=== PATIENT | female | born 1970 | race Caucasian/White ===

== ENCOUNTER 2021-07-13 18:18 | Emergency (ER) | payer OTHER ==
[~2021-07-13 18:18] MED LIST: FLEXERIL 10 MG10 MG PO; IBUPROFEN600 MG PO
== END 2021-07-13 20:58 | disposition home or self-care (01) ==
LOC: ER1 18:18
DX: U07.1 COVID-19 (principal); J06.9 Acute upper respiratory infection, unspecified; E11.9 Type 2 diabetes mellitus without complications; I10 Essential (primary) hypertension; Z90.710 Acquired absence of both cervix and uterus; Z88.0 Allergy status to penicillin; Z88.5 Allergy status to narcotic agent; Z79.899 Other long term (current) drug therapy
CPT/HCPCS: 71045; 99284; U0003

== ENCOUNTER → 2022-02-25 | Day surgery (SDC) | payer OTHER ==
[~2022-02-25] VITALS: Ht 170.2 cm; Wt 83.0 kg
[~2022-02-25] MED LIST changes: +BASAGLAR K100 UNIT/1 SQ; +BC POWDER PACK1 EACH PO; +COREG6.25 MG PO; +HYDROCODON-ACE1 EAC6 PO; +HYDROXYZINE HCL25 MG PO; +LEXAPRO10 MG PO; +LISINOPRIL10 MG PO; +METFORMIN HCL1000 MG PO; +PROAIR HFA8.5 GM INH; +VITAMIN B12 PO; +VITAMIN D21250 MCG PO
== END | disposition home or self-care (01) ==
LOC: OR 05:48
DX: S83.241A Other tear of medial meniscus, current injury, right knee, initial encounter (principal); S83.411A Sprain of medial collateral ligament of right knee, initial encounter; M94.261 Chondromalacia, right knee; M65.9 Synovitis and tenosynovitis, unspecified; I10 Essential (primary) hypertension; E78.5 Hyperlipidemia, unspecified; J45.909 Unspecified asthma, uncomplicated; E11.9 Type 2 diabetes mellitus without complications; F41.9 Anxiety disorder, unspecified; F32.A Depression, unspecified; F17.210 Nicotine dependence, cigarettes, uncomplicated; F40.240 Claustrophobia; Z88.0 Allergy status to penicillin; Z88.2 Allergy status to sulfonamides; Z88.5 Allergy status to narcotic agent; Z79.4 Long term (current) use of insulin; Z90.710 Acquired absence of both cervix and uterus; Z79.84 Long term (current) use of oral hypoglycemic drugs; X50.1XXA Overexertion from prolonged static or awkward postures, initial encounter; Z20.822 Contact with and (suspected) exposure to COVID-19
CPT/HCPCS: 82962; J0171; J0690; J1100; J1170; J1885; J2001; J2405; J2704; J3010; J7030; J7040; J7120